=== PATIENT | male | born 1940 | race Caucasian/White ===

== ENCOUNTER 2019-04-02 10:24 | Inpatient (IN) ==
[2019-04-02] MEDS ORDERED: SODIUM CHLORIDE 0.9% 500 ML IV SCH (11:15)
[2019-04-02] MEDS ORDERED: VANCOMYCIN CONSULT ACTIVE PRN ×3 (11:20→15:16)
[2019-04-02] MEDS ORDERED: VANCOMYCIN HCL 2,500 MG in SODIUM CHLORIDE 0.9% 500 ML IV ONE ×2 (11:20→12:50)
[2019-04-02 11:40] LABS: Hematocrit (blood only) 35.2 % (42-52); Hemoglobin 11.8 g/dL (14.0-18.0); Immature Granulocytes # (auto) 0.03 K/uL (0.00-0.02); Immature Granulocytes % (auto) 0.4 %; Lymphocytes # (auto) 1.92 K/uL (1.2-3.4); Lymphocytes % (auto) 22.9 %; Mean Corpuscular Hgb Conc 33.5 g/dL (32-36); Mean Corpuscular Volume 89.6 fL (80-100); Monocytes # (auto) 1.36 K/uL (0.11-0.59); Monocytes % (auto) 16.2 %; Neutrophils # (auto) 5.09 K/uL (1.4-6.5); Neutrophils % (auto) 60.5 %; Platelet Count 260 K/uL (130-400); RDW Coefficient of Variation 13.4 % (11.5-14.5); RDW Standard Deviation 44.3 fL (36.4-46.3); Red Blood Count 3.93 M/uL (4.7-6.1)
[2019-04-02 11:50] LABS: Prothrombin Time 10.6 Seconds (9.0-12.0)
--- NOTE | 2019-04-02 11:50 | XRay Report ---
SINGLE VIEW CHEST CLINICAL HISTORY: Right hip infection. FINDINGS: 2 AP, portable, upright chest radiographs are obtained. No prior studies are available for comparison at the time of dictation. The examination is degraded by portable technique and apical favian dotic positioning. The heart is enlarged and there is atherosclerotic calcification of the thoracic aorta. The pulmonary vasculature is noncongested. There is bibasilar scarring/atelectasis. No airspac e consolidation or large pleural effusion is identified. No pneumothorax is seen. The skeletal struct ures are osteopenic. The bony thorax is grossly intact. Postoperative change is noted in the right hu meral head. IMPRESSION: Cardiomegaly with no acute cardiopulmonary abnormality. Electronically signed by: Teofilo Wooten M.D. 04/02/2019 11:49 AM
[2019-04-02 12:02] LABS: Albumin Level 3.2 gm/dl (3.4-5.0); BUN Creatinine Ratio 24.1 (10-20); Calcium 9.8 mg/dl (8.5-10.1); Creatinine Clr Calc Pharmacy 67.7 ml/min; Est GFR (Non-African American) 71.6; Potassium 4.7 mmol/L (3.5-5.1)
[2019-04-02 12:05] LABS: Albumin Globulin Ratio 0.7 (0.9-2); Bilirubin,Total 0.6 mg/dl (0.2-1); Globulin 4.5 gm/dl (2.5-4.0); Total Protein 7.7 gm/dl (6.4-8.2)
--- NOTE | 2019-04-02 12:56 | Emergency Department Note ---
Entered by Regla Martinez acting as a scribe for History of Present Illness General Chief complaint: Infection, Wound Stated complaint: WOUND CHECK FOR INFECTION, DR VALERA SENT Time Seen by Provider: 04/02/19 11:03 Source: patient and family Mode of arrival: ambulatory Limitations: no limitations History of Present Illness Provider complaint: infection Onset (ago): day(s) 5 Pain Consistency: + other (worsening) Quality: + other (suspected) Associated symptoms: + fever/chills The patient is an 78 year old male who presents to the ER with complaints of a suspected infection that began night. The patient reports that he had a right [place] done on February [address] [place] [facility] [place] He states that night he had some inflammation in the surgical area and notes it has worsened since. He also reports that he has had chills and he has had a persistent fever. His family at bedside states that the highest was 102.6 F on Tuesday. Per family, the patient was evaluated at [facility] in [place] and evaluated by Dr. Valera and Dr. Godinez where he had blood work done but did not receive any antibiotics. They explain that they presented [place] [facility] [place] and evaluated by Ari Blackmon PA-C and referred here secondary to Dr. Mccabe being out of the office. Home Medications Home Medications Medication Instructions Recorded Confirmed Type acetaminophen [Tylenol Extra 500 mg PO Q6H PRN 04/02/19 04/02/19 History Strength] aspirin [Aspirin Low Dose] 81 mg PO DAILY 04/02/19 04/02/19 History brimonidine [Alphagan P] 1 drp OPB TID 04/02/19 04/02/19 History cholecalciferol (vitamin D3) 2,000 unit PO DAILY 04/02/19 04/02/19 History [Vitamin D3] citalopram 20 mg PO DAILY 04/02/19 04/02/19 History cyanocobalamin (vitamin B-12) 1,000 mcg PO DAILY 04/02/19 04/02/19 History [Vitamin B-12] ibuprofen 600 mg PO BID 04/02/19 04/02/19 History multivitamin 1 tab PO DAILY 04/02/19 04/02/19 History pramipexole 0.25 mg PO HS 04/02/19 04/02/19 History propranolol 10 mg PO BID 04/02/19 04/02/19 History risperidone 0.25 mg PO HS 04/02/19 04/02/19 History Allergies Allergy/AdvReac Type Severity Reaction Status Date / Time atorvastatin [From Lipitor] Allergy Nausea Unverified 04/02/19 11:52 niacin Allergy Rash Unverified 04/02/19 11:52 [From Niaspan Extended-Release] Past Med/Surg History Surgical History History of right hip replacement (~02/19/19) By Dr. Tee at [facility] Social History Preferred Language: Kiswahili marital status: Current Living Situation: Family Feels Safe at Home: Yes Smoking Status: Former smoker Review of Systems See HPI for pertinent positives & negatives. and A total of 10 systems reviewed and were otherwise negative Physical Exam Vital Signs Vital Signs - 24 hr 04/02/19 10:45 04/02/19 12:26 04/02/19 14:00 Temperature 36.6 C Temperature Source Oral Sepsis Recent Fever Within 48 Hours No Sepsis New/Unexplained Change in Mental Status No Sepsis Action Taken by Nursing No Action Required Pulse Rate 58 L Pulse Rate [Apical] 74 60 Pulse Rhythm Regular Pulse Strength Normal Respiratory Rate 20 16 16 Respiratory Effort / Characteristics Non-Labored Spontaneous Respiratory Depth Normal Respiratory Pattern Regular Blood Pressure 149/73 H Blood Pressure [Left Arm] 163/92 H 150/82 H Blood Pressure Mean 98 Blood Pressure Mean [Left Arm] 115 104 Pulse Oximetry 98 97 98 Oxygen Delivery Method Room Air Room Air Room Air CONSTITUTIONAL/VITAL SIGNS: Reviewed / noted above. GENERAL: Non-toxic in appearance. INTEGUMENTARY: Warm, dry, and [place]. HEAD: Normocephalic. EYES: without scleral icterus or trauma. ENT/OROPHARYNX: clear and moist. LYMPHADENOPATHY/NECK: Is supple without lymphadenopathy or meningismus. RESPIRATORY: Lungs clear and equal. CARDIOVASCULAR: Regular rate and rhythm. GI/ABDOMEN: Soft and nontender. No organomegaly or pulsatile mass. No rebound or guarding. Normal bowel sounds. EXTREMITIES: Warm and well perfused. Swelling and redness to the right lateral hip overlying the incision from recent hip surgery. BACK: No CVA tenderness. NEUROLOGICAL: Intact without focal deficits. PSYCHIATRIC: normal affect. MUSCULOSKELETAL: Normally developed with good muscle tone. Course 1104: Past medical records reviewed. The patient was evaluated in room B3B. A complete history and physical examination was performed. 1127: I discussed the patients case with BENEDICTO Pierre. He will come evaluate the patient. 1356: Ortho evaluated the patient and accepted the patient into his care. They will continue to evaluate the patient for further management. Administered Medications Vancomycin HCl 2,500 mg/ (Sodium Chloride) 550 mls @ 200 mls/hr IV NOW ONE; Protocol Stop: 04/02/19 15:34 Last Admin: 04/02/19 12:58 Dose: 200 mls/hr Documented by: [id number] Discontinued Medications Sodium Chloride (Nss) 500 mls @ 999 mls/hr IV .Q31M SAÚL Stop: 04/02/19 11:45 Last Infusion: 04/02/19 12:59 Dose: 0 mls/hr Documented by: [id number] Admin: 04/02/19 12:23 Dose: 999 mls/hr Documented by: [id number] Medical Decision Making Differential Diagnosis Differential diagnosis: cellulitis, abscess, MRSA, infection, DVT, necrotizing fasciitis, dermatitis, drug eruption, as well as others were entertained. Medical Records Attestation: I reviewed the patient's medical records. Home Medications Current Medication List: was personally reviewed by me Laboratory Data Attestation: I reviewed the patient's lab results. Result diagrams: 04/02/19 11:30 04/02/19 11:30 Lab Results 04/02/19 04/02/19 04/02/19 Range/Units 11:30 11:30 11:30 WBC 8.40 (4.8-10.8) K/uL RBC 3.93 L (4.7-6.1) M/uL Hgb 11.8 L (14.0-18.0) g/dL Hct 35.2 L (42-52) % MCV 89.6 (80-100) fL MCH 30.0 (25-34) pg MCHC 33.5 (32-36) g/dL RDW Std Deviation 44.3 (36.4-46.3) fL RDW Coeff of Yung 13.4 (11.5-14.5) % Plt Count 260 (130-400) K/uL MPV 9.0 (7.4-10.4) fL Immature Gran % (Auto) 0.4 % Neut % (Auto) 60.5 % Lymph % (Auto) 22.9 % [place] % (Auto) 16.2 % Eos % (Auto) 0.0 % Baso % (Auto) 0.0 % Immature Gran # (Auto) 0.03 H (0.00-0.02) K/uL Neut # (Auto) 5.09 (1.4-6.5) K/uL Lymph # (Auto) 1.92 (1.2-3.4) K/uL [place] # (Auto) 1.36 H (0.11-0.59) K/uL Eos # (Auto) 0.00 (0-0.5) K/uL Baso # (Auto) 0.00 (0-0.2) K/uL ESR > 90 H (0-14) mm/hr PT 10.6 (9.0-12.0) Seconds INR 1.0 (0.9-1.1) Sodium (136-145) mmol/L Potassium (3.5-5.1) mmol/L Chloride (98-107) mmol/L Carbon Dioxide (21-32) mmol/L Anion Gap (3-11) BUN (7-18) mg/dl Creatinine (0.6-1.4) mg/dl Est Cr Clr Drug Dosing ml/min Est GFR ( Amer) Est GFR (Non-Af Amer) BUN/Creatinine Ratio (10-20) Glucose (70-99) mg/dl Calcium (8.5-10.1) mg/dl Total Bilirubin (0.2-1) mg/dl AST (15-37) U/L ALT (12-78) U/L Alkaline Phosphatase (45-117) U/L Total Protein (6.4-8.2) gm/dl Albumin (3.4-5.0) gm/dl Globulin (2.5-4.0) gm/dl Albumin/Globulin Ratio (0.9-2) 04/02/19 Range/Units 11:30 WBC (4.8-10.8) K/uL RBC (4.7-6.1) M/uL Hgb (14.0-18.0) g/dL Hct (42-52) % MCV (80-100) fL MCH (25-34) pg MCHC (32-36) g/dL RDW Std Deviation (36.4-46.3) fL RDW Coeff of Yung (11.5-14.5) % Plt Count (130-400) K/uL MPV (7.4-10.4) fL Immature Gran % (Auto) % Neut % (Auto) % Lymph % (Auto) % [place] % (Auto) % Eos % (Auto) % Baso % (Auto) % Immature Gran # (Auto) (0.00-0.02) K/uL Neut # (Auto) (1.4-6.5) K/uL Lymph # (Auto) (1.2-3.4) K/uL [place] # (Auto) (0.11-0.59) K/uL Eos # (Auto) (0-0.5) K/uL Baso # (Auto) (0-0.2) K/uL ESR (0-14) mm/hr PT (9.0-12.0) Seconds INR (0.9-1.1) Sodium 140 (136-145) mmol/L Potassium 4.7 (3.5-5.1) mmol/L Chloride 102 (98-107) mmol/L Carbon Dioxide 30 (21-32) mmol/L Anion Gap 8.0 (3-11) BUN 24 H (7-18) mg/dl Creatinine 0.99 (0.6-1.4) mg/dl Est Cr Clr Drug Dosing 67.7 ml/min Est GFR ( Amer) 83.0 Est GFR (Non-Af Amer) 71.6 BUN/Creatinine Ratio 24.1 H (10-20) Glucose 107 H (70-99) mg/dl Calcium 9.8 (8.5-10.1) mg/dl Total Bilirubin 0.6 (0.2-1) mg/dl AST 27 (15-37) U/L ALT 60 (12-78) U/L Alkaline Phosphatase 118 H (45-117) U/L Total Protein 7.7 (6.4-8.2) gm/dl Albumin 3.2 L (3.4-5.0) gm/dl Globulin 4.5 H (2.5-4.0) gm/dl Albumin/Globulin Ratio 0.7 L (0.9-2) Imaging Data Radiologist's Impression: Radiology results as stated below per my review and the radiologist's interpretation: SINGLE VIEW CHEST CLINICAL HISTORY: Right hip infection. FINDINGS: 2 AP, portable, upright chest radiographs are obtained. No prior boris dies are available for comparison at the time of dictation. The examination is degraded by portable technique and apical lordotic positioning. The heart is enlarged and there is atherosclerotic calcification of the thoracic aorta. The pulmonary vasculature is noncongested. There is bibasilar scarring/atelectasis. No airspace consolidation or large pleural effusion is identified. No pneumothorax is seen. The skeletal structures are osteopenic. The bony thorax is grossly intact. Postoperative change is noted in the right humeral head. IMPRESSION: Cardiomegaly with no acute cardiopulmonary abnormality. Electronically signed by: Teofilo Wooten M.D. 04/02/2019 11:49 AM Blood Pressure Blood Pressure Findings: Elevated blood pressure Blood Pressure Disposition: further management by hospitalist JOY Narrative This is an 78-year-old male who presents to the ED with a chief complaint of a right hip wound infection. The patient was seen on Tuesday at the emergency department and MIKHAIL Alvarado. At that time he was concerned about infection. He followed up with the physician assistant principal administrative professional for Dr. Baird, Ari Blackmon, who recommended the patient come to the hospital here at [facility] for a washout of his right hip. The patient reports subjective fevers and chills as well as had a fever of 102.6 on Tuesday with 100.8 yesterday. He is afebrile here today. The patient's exam reveals some swelling and redness around the right hip incision and under the incision. There is currently no discharge noted but the patient did report some drainage. The patient CBC is unremarkable. Sed rate is 90. Chest x-ray is negative for acute disease. I did speak with Jeronimo Brink about the patient. He was in surgery at the time but requested that antibiotics be held until the CBC was back. Vancomycin IV was provided after the CBC came back. They will see the patient in the emergency department. Impression & Plan Postoperative wound infection of right hip Discharge Plan Visit Data Chief Complaint: Infection, Wound Stated Complaint: WOUND CHECK FOR INFECTION, DR VALERA SENT ED Provider: Bernard Kelley Discharge Problem: Postoperative wound infection of right hip Patient Disposition: Being Evaluated by Surgeon Forms Stand Alone Forms: [facility] Prescriptions Prescriptions: No Action multivitamin Tablet 1 tab PO DAILY RF: 0 cyanocobalamin (vitamin B-12) [Vitamin B-12] 1,000 mcg Tablet 1,000 mcg PO DAILY RF: 0 risperidone 0.25 mg Tablet 0.25 mg PO HS RF: 0 aspirin [Aspirin Low Dose] 81 mg Tablet,Delayed Release (Dr/Ec) 81 mg PO DAILY RF: 0 acetaminophen [Tylenol Extra Strength] 500 mg Tablet 500 mg PO Q6H PRN (Reason: Pain) RF: 0 propranolol 10 mg Tablet 10 mg PO BID RF: 0 citalopram 20 mg Tablet 20 mg PO DAILY RF: 0 pramipexole 0.25 mg Tablet 0.25 mg PO HS RF: 0 ibuprofen 600 mg tablet 600 mg PO BID RF: 0 Alphagan P 0.1 % Drops 1 drp OPB TID RF: 0 cholecalciferol (vitamin D3) [Vitamin D3] 2,000 unit Capsule 2,000 unit PO DAILY RF: 0 Referrals Referrals: Fidelia Nicolas M.D. [Primary Care Provider] - The scribe's documentation has been prepared under my direction and personally reviewed by me in its entirety. I confirm that the note above accurately reflects all work, treatment, procedures, and medical decision making performed by me.
[2019-04-02] MEDS ORDERED: MAGNESIUM HYDROXIDE SUSP 30 ML UDC PO PRN (17:09)
--- NOTE | 2019-04-02 18:38 | XRay Report ---
XR chest 2V routine HISTORY: 78 years-old Male pre op preoperative exam. No acute chest complaints COMPARISON: Chest radiographs of same day at 11:35 AM TECHNIQUE: PA and lateral views of the chest FINDINGS: Cardiac silhouette is mildly enlarged, unchanged. Minimal subsegmental bibasilar atelectasis/scarring . No pneumothorax, pleural effusion, focal airspace consolidation or overt pulmonary edema. Degenerat cecilia changes of the shoulders and spine. Postoperative changes of the left shoulder. Surgical clips pr oject over the upper abdomen. IMPRESSION: No acute process. The above report was generated using voice recognition software. It may contain grammatical, syntax o r spelling errors. Electronically signed by: Al Taylor M.D. 04/02/2019 6:37 PM
--- NOTE | 2019-04-02 19:07 | Hospitalist Consultation ---
Date of Consultation April 02, 2019 Assessment & Plan (1) Postoperative wound infection of right hip: - S/P R NEIL on 02/19 - does report he was instructed to use hydrogen peroxide on incision site - maybe some skin breakdown contributing? - reporting fever/chills/general ill feelings/drainage/erythema at site - Started on Vancomycin therapy - likely a gram + organism would be the culprit - not immunocompromised/diabetic... - clinically appears well but pending operative cultures may need to broaden to cover gram negs - Reporting fevers/rigors - currently no documented fever and no leukocytosis on labs; however site is erythematous and reports drainage however currently is dry - Largely pain is controlled - will order Morphine PRN if necessary - Orthopedics primary service - appreciate surgical management Present on Admission?: Yes (2) Pre-operative clearance: - Reports that he follows with a behavior management specialist Dr Merritt?Bandcelina? but reports he does not carry a cardiac H/O to his knowledge but follows for surveillance - states after his 's heart issues he wanted to be evaluated - Denies H/O KS/CHF/PE/DVT; denies having a recent stress test - Is able to ambulate flights of stairs without SOB/CP; Continues to be very physically active but limitations are largely from orthopedic issues - CXR unremarkable; will obtain an EKG to assess rhythm and for any ischemic findings however no ACS symptoms present; states he had an irregular HR in the past and thinks he just had "extra beats" but did not know a name of the rhythm and states he behavior management specialist never mentions it - On the revised cardiac risk index he is a 3.9% risk and pending no acute ischemic findings on EKG would be optimized for surgical intervention (3) Carotid stenosis: - Reports routine monitoring for this - reports intolerance to Lipitor and was placed on a different medication (doesn't know which one) but states he had excessive muscle weakness so likely this was a different statin? - Takes ASA 81 mg daily - last dose was this AM on 04/02 Present on Admission?: Yes (4) Depression with anxiety: - Does endorse intermittent panic attacks - largely due to enclosed spaces - otherwise STABLE - Citalopram 20 mg daily and Risperidone 0.25 mg HS; will place low dose Ativan PRN if he would develop issues with anxiety Present on Admission?: Yes (5) Restless leg syndrome: - Pramipexole 0.25 mg HS Present on Admission?: Yes (6) Essential tremor: - STABLE - reports normally only a problem with fine motor skills like handwriting - Propranolol 10 mg BID Present on Admission?: Yes History of Present Illness Reason for Consultation: Pre-operative Clearance Attending Physician: Win Monahan, DO History of Present Illness Mr. Rios is an 78 y/o male with PMHx of Carotid Stenosis, Vitamin D Deficiency, Depression/Anxiety, Restless Leg Syndrome, and Essential Tremor who presents to the ED for worsening erythema of R hip incision. Pt underwent R NEIL on 02/19 and states he was doing well post-operatively. He was succeeding with PT and reported good progression. He states he has been judicious with monitoring his incision site. He states he was instructed to use hydrogen peroxide to the surgical incision which he has been following. On , he noticed increased erythema and drainage from the incision site. He also had associated fever/chills with the highest temperature of 102.6 on Tuesday. He reports his pain is largely controlled but does not some groin pain and intermittent radiation down the lateral thigh to the knee. States this was similar pain he experienced prior to surgical intervention. States he is having a slightly more difficult time ambulating since the erythema started. Allergies Allergy/AdvReac Type Severity Reaction Status Date / Time atorvastatin [From Lipitor] Allergy Nausea Unverified 04/02/19 11:52 niacin Allergy Rash Unverified 04/02/19 11:52 [From Niaspan Extended-Release] Home Medications Home Medications Medication Instructions Recorded Confirmed Type acetaminophen [Tylenol Extra 500 mg PO Q6H PRN 04/02/19 04/02/19 History Strength] aspirin [Aspirin Low Dose] 81 mg PO DAILY 04/02/19 04/02/19 History brimonidine [Alphagan P] 1 drp OPB TID 04/02/19 04/02/19 History cholecalciferol (vitamin D3) 2,000 unit PO DAILY 04/02/19 04/02/19 History [Vitamin D3] citalopram 20 mg PO DAILY 04/02/19 04/02/19 History cyanocobalamin (vitamin B-12) 1,000 mcg PO DAILY 04/02/19 04/02/19 History [Vitamin B-12] ibuprofen 600 mg PO BID 04/02/19 04/02/19 History multivitamin 1 tab PO DAILY 04/02/19 04/02/19 History pramipexole 0.25 mg PO HS 04/02/19 04/02/19 History propranolol 10 mg PO BID 04/02/19 04/02/19 History risperidone 0.25 mg PO HS 04/02/19 04/02/19 History Patient History Medical History Anxiety Carotid arterial disease Depression Essential tremor Guillain Reid syndrome at age 14 High cholesterol JOSH (obstructive sleep apnea) has CPAP, does not use RLS (restless legs syndrome) [place] teeth extracted Surgical History History of right hip replacement (~02/19/19) By Dr. Tee at [facility] H/O prostate biopsy had "growth" removed S/P cholecystectomy Status post rotator cuff repair L x 2 R x 1 Family History Other Family history non-contributory Social History Preferred Language: Portuguese Communication Ability: Effective Loan Examiner Required: No Beliefs That Will Affect Care: Jainism Jainism Beliefs: Baptism marital status: Current Living Situation: Spouse Other Information That Helps Us Care for You: No Feels Safe at Home: Yes Safety Concerns: Feels Safe At This Time Smoking Status: Former smoker Do You Dip or Chew Tobacco: No Smoking End Date: quit in his late 40's Second Hand Exposure: No Hx Alcohol Use: No Hx Substance Use: No Review of Systems Constitutional: + fever and + chills; no fatigue, no weakness and no anorexia Eyes: no worsening vision Ear, Nose, Mouth, Throat: no dry mouth, no sore throat and no dysphagia Respiratory: no cough and no dyspnea Cardiovascular: no chest pain, no palpitations, no lightheadedness, no edema and no calf pain Gastrointestinal: no abdominal pain, no nausea, no vomiting, no constipation and no diarrhea/loose stools Genitourinary: no dysuria Musculoskeletal: + joint pain (R hip with some R groin and radiation to R knee) Integumentary: + erythema (R hip incision) Neurologic: no tingling and no numbness Physical Exam Constitutional: WD/WN, vitals as above Eyes: + anicteric sclerae ENMT: Ears: no hearing impairment Neck: trachea midline Respiratory: normal respiratory effort, lungs clear to auscultation Cardiovascular: RRR, no murmur, no edema Gastrointestinal (Abdomen): Inspection/Auscultation: normal bowel sounds Percussion/Palpation: abdomen soft; abdomen nontender Musculoskeletal: Head/Neck/Chest: normocephalic, head atraumatic and neck supple Hip: + skin erythema (well-approximated incision with erythema at distal element of incision) Skin: no rashes, warm and dry (other then mentioned in MS section) Neurologic: moves all extremities Psychiatric: A+Ox3, euthymic affect Results & Data Vital Signs (Past 12 Hours) Vital Signs Temp Pulse Pulse Pulse Resp BP BP 04/02/19 16:50 37.4 C 76 16 171/89 H 04/02/19 14:00 60 16 150/82 H 04/02/19 12:26 74 16 163/92 H 04/02/19 10:45 36.6 C 58 L 20 149/73 H Pulse Ox 04/02/19 16:50 95 04/02/19 14:00 98 04/02/19 12:26 97 04/02/19 10:45 98
[2019-04-02] MEDS ORDERED: LORazepam 0.5 MG TAB PO PRN (19:11)
--- NOTE | 2019-04-02 20:45 | Pharmacy Report ---
Pharmacy Abx Dose Short Note - Date of Service April 02, 2019 - Assessment & Plan Assessment: 78 yo Male receiving VANC-IV for treatment of SSTI. Cultures pending. * Day # 1 of antimicrobial therapy. Plan: Vanc-IV: * Estimated pharmacokinetics: Vd~0.7 L/kg, Ke~0.0608 hr-1, T 1/2~11 hrs * LOADING DOSE: VANC 2500mg (~25mg/kg) IV x 1, then * MAINTENANCE DOSE: VANC 1500mg (~15mg/kg) IV q 12 hours. * Goal trough level: 15 to 20 mcg/mL * VANC Trough level @ Css ordered prior to 04/03/19 2200 dose Pharmacy will continue to follow and will adjust dose/frequency as necessary. Thank you.
--- NOTE | 2019-04-02 20:47 | History & Physical Report ---
Date of Service April 02, 2019 Assessment & Plan (1) Surgical site infection: Acute surgical site infection of the right hip, superficial versus deep. No systemic symptoms at this time. Patient did receive IV antibiotics in the emergency department, will continue IV antibiotics at this time. Medical hospitalist consulted for preoperative clearance. I have indicated the patient for superficial versus deep irrigation debridement of the right hip, possible head and liner exchange. The risks benefits and complications the procedure were expanded the patient in detail including the alternatives which include however not limited to infections, blood clots, acute blood loss, injury to n erves, bone, vessels, soft tissue, chronic pain, arthrofibrosis, hip dislocation, leg length discrepancy, recurrent infection, need for additional surgery, loss of limb and loss of life. Patient wished to proceed with surgical intervention at this time and informed consent was obtained. IV vancomycin Weight-bear as tolerated right lower extremity Preoperative clearance X-ray right hip History of Present Illness Chief Complaint: Right hip surgical site infection Primary Care Provider: Fidelia Nicolas The patient is an 78-year-old male with significant past medical history for anxiety, depression, CAD, HLD with recent right total hip replacement performed on February 19, [address] Tee. Uneventful postoperative. With the exception of 2 days prior to today's examination, patient reports increased pain and swelling over lateral right hip. Admits to intermittent drainage as well. Seen in the outpatient setting by Dr. patrick and subsequently sent to [facility] emergency department for further inpatient treatment due to the patient's surgeon being on vacation. The patient currently denies fevers and chills . Denies trauma. The patient received IV vancomycin in the emergency department. Allergies Allergy/AdvReac Type Severity Reaction Status Date / Time atorvastatin [From Lipitor] Allergy Nausea Unverified 04/02/19 11:52 niacin Allergy Rash Unverified 04/02/19 11:52 [From Niaspan Extended-Release] Home Medications Home Medications Medication Instructions Recorded Confirmed Type acetaminophen [Tylenol Extra 500 mg PO Q6H PRN 04/02/19 04/02/19 History Strength] aspirin [Aspirin Low Dose] 81 mg PO DAILY 04/02/19 04/02/19 History brimonidine [Alphagan P] 1 drp OPB TID 04/02/19 04/02/19 History cholecalciferol (vitamin D3) 2,000 unit PO DAILY 04/02/19 04/02/19 History [Vitamin D3] citalopram 20 mg PO DAILY 04/02/19 04/02/19 History cyanocobalamin (vitamin B-12) 1,000 mcg PO DAILY 04/02/19 04/02/19 History [Vitamin B-12] ibuprofen 600 mg PO BID 04/02/19 04/02/19 History multivitamin 1 tab PO DAILY 04/02/19 04/02/19 History pramipexole 0.25 mg PO HS 04/02/19 04/02/19 History propranolol 10 mg PO BID 04/02/19 04/02/19 History risperidone 0.25 mg PO HS 04/02/19 04/02/19 History Past Med/Surg History Medical History Anxiety Carotid arterial disease Depression Essential tremor Guillain Reid syndrome at age 14; has resolved; no residual deficits after 1 year High cholesterol JOSH (obstructive sleep apnea) has CPAP, does not use RLS (restless legs syndrome) [place] teeth extracted Surgical History History of right hip replacement (~02/19/19) By Dr. Tee at [facility] H/O prostate biopsy had "growth" removed S/P cholecystectomy Status post rotator cuff repair L x 2 R x 1 Family History Other Family history non-contributory Social History Preferred Language: Japanese Communication Ability: Effective Electroformer Required: No Beliefs That Will Affect Care: Pentecostalism Pentecostalism Beliefs: Islam marital status: Current Living Situation: Spouse Other Information That Helps Us Care for You: No Feels Safe at Home: Yes Safety Concerns: Feels Safe At This Time Smoking Status: Former smoker Do You Dip or Chew Tobacco: No Smoking End Date: quit in his late 40's Second Hand Exposure: No Hx Alcohol Use: No Hx Substance Use: No Review of Systems Review of Systems: All systems reviewed & are unremarkable except as noted in HPI & below Constitutional: as per Subjective / HPI Physical Exam Physical Exam: RLE NVSI +EHL/FHL/TA/GS SILT grossly, +2 DP pulse, compartments soft NT, Painless range of motion of the hip. Increased erythema and edema distal one third incision measuring 8 cm x 7 cm, + induration, no active drainage or wound dehiscence, scant serosanguineous drainage on dressing. Constitutional: WD/WN, vitals as above Eyes: PERRL, conjunctivae normal, anicteric sclerae ENMT: external ear and nose normal, oropharynx normal Neck: trachea midline, no thyromegaly Respiratory: normal respiratory effort, lungs clear to auscultation Cardiovascular: RRR, no murmur, no edema Gastrointestinal (Abdomen): normal bowel sounds, soft, nontender, no hepatosplenomegaly Musculoskeletal: no cyanosis or clubbing, extremities motor strength 5/5 Skin: + rash, + induration, + scar and + incision Neurologic: patellar DTR's 2+ bilat, sensation intact Psychiatric: A+Ox3, euthymic affect Lymphatic: no cervical or axillary lymphadenopathy Results & Data Vital Signs (Past 12 Hours) Vital Signs Temp Pulse Pulse Pulse Resp BP BP 04/02/19 16:50 37.4 C 76 16 171/89 H 04/02/19 14:00 60 16 150/82 H 04/02/19 12:26 74 16 163/92 H 04/02/19 10:45 36.6 C 58 L 20 149/73 H Pulse Ox 04/02/19 16:50 95 04/02/19 14:00 98 04/02/19 12:26 97 04/02/19 10:45 98
[2019-04-02] MEDS: PROPRANOLOL HCL 10 MG TAB PO SCH (20:55)
[2019-04-02] MEDS: risperiDONE 0.5 MG TABLET PO SCH (20:55)
[2019-04-02] MEDS: PRAMIPEXOLE DIHYDROCHLO 0.25 MG TAB PO SCH (20:56)
[2019-04-02] MEDS ORDERED: BRIMONIDINE OPB SCH (21:00)
[2019-04-02] MEDS: VANCOMYCIN HCL 1,500 MG in SODIUM CHLORIDE 0.9% 500 ML IV SCH (21:02)
--- NOTE | 2019-04-02 22:20 | XRay Report ---
XR hip 1V RT w pelvis CLINICAL HISTORY: right hip pain, surgical site infection COMPARISON STUDY: None. FINDINGS: There is a right total hip arthroplasty. Hardware appears intact. No abnormal periprostheti c lucency. No fracture or dislocation within the pelvis or hips. 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 Soft tissues are unremarkable. IMPRESSION: 1. Right total hip arthroplasty. No abnormal periprosthetic lucency. 2. No fracture or dislocation within the pelvis or hips. Electronically signed by: Charles García M.D. 04/02/2019 10:18 PM
[2019-04-03] MEDS: SODIUM CHLORIDE 0.9% 1000ML 1,000 ML IV SCH ×4 (00:06→23:41)
[2019-04-03 07:37] LABS: Creatinine Clr Calc Pharmacy 88.2 ml/min; Est GFR (African American) 99.9; Est GFR (Non-African American) 86.2
[2019-04-03] MEDS: CITALOPRAM 20 MG TAB PO SCH (07:48)
[2019-04-03] MEDS: PROPRANOLOL HCL 10 MG TAB PO SCH ×2 (07:48→20:40)
[2019-04-03] MEDS: VANCOMYCIN HCL 1,500 MG in SODIUM CHLORIDE 0.9% 500 ML IV SCH ×2 (11:06→21:27)
[2019-04-03] MEDS: MoRPHine SULFATE 2 MG/ML CARP IV PRN ×2 (13:24)
[2019-04-03] MEDS: BRIMONIDINE TARTRATE-P 0.15% 5 ML BTL OP SCH ×2 (13:24→20:43)
--- NOTE | 2019-04-03 14:21 | Anesthesiology Consultation ---
Date of Service April 03, 2019 Assessment & Plan Chart Review Chart Review: Acceptable Risk for Surgery and Patient NOT seen in Pre Admission Testing Consults Requested none ASA ASA3 Proposed Anesthesia Anesthesia Type: General Risk / Benefits Reviewed With: PT / POA / Parent / Guardian, Accepts Plan and Informed Consent Obtained History Surgery Operation Date: 04/03/19 07:00 Proposed Procedures p Incision and Drainage Hip - Win Monahan DO s Total Hip Revision - Win Monahan DO Height/Weight Height: 1.75 m Weight: 95 kg Allergies Allergy/AdvReac Type Severity Reaction Status Date / Time atorvastatin [From Lipitor] Allergy Nausea Unverified 04/02/19 11:52 niacin Allergy Rash Unverified 04/02/19 11:52 [From Niaspan Extended-Release] Medications Home Medications Medication Instructions Recorded Confirmed Last Taken acetaminophen [Tylenol Extra 500 mg PO Q6H PRN 04/02/19 04/02/19 04/02/19 Strength] aspirin [Aspirin Low Dose] 81 mg PO DAILY 04/02/19 04/02/19 04/02/19 brimonidine [Alphagan P] 1 drp OPB TID 04/02/19 04/02/19 04/02/19 cholecalciferol (vitamin D3) 2,000 unit PO DAILY 04/02/19 04/02/19 04/02/19 [Vitamin D3] citalopram 20 mg PO DAILY 04/02/19 04/02/19 04/02/19 cyanocobalamin (vitamin B-12) 1,000 mcg PO DAILY 04/02/19 04/02/19 04/02/19 [Vitamin B-12] ibuprofen 600 mg PO BID 04/02/19 04/02/19 04/02/19 multivitamin 1 tab PO DAILY 04/02/19 04/02/19 04/02/19 pramipexole 0.25 mg PO HS 04/02/19 04/02/19 04/01/19 propranolol 10 mg PO BID 04/02/19 04/02/19 04/02/19 risperidone 0.25 mg PO HS 04/02/19 04/02/19 04/01/19 Active Medications Generic Name Dose Route Start Last Admin Trade Name Freq PRN Reason Stop Dose Admin Brimonidine Tartrate 1 drops 04/03/19 14:00 04/03/19 13:24 Alphagan-P 0.15% OP 05/03/19 13:59 1 drops TID SAÚL Administration Citalopram Hydrobromide 20 mg 04/03/19 09:00 04/03/19 07:48 Celexa PO 05/03/19 08:59 20 mg DAILY SAÚL Administration Vancomycin HCl 1,500 mg/ 530 mls @ 200 mls/hr 04/02/19 22:00 04/03/19 13:50 Sodium Chloride IV 04/12/19 21:59 Infused Q12H SAÚL Infusion Protocol Sodium Chloride 1,000 mls @ 85 mls/hr 04/02/19 23:55 04/03/19 11:06 Nss 1000ml IV 05/02/19 23:54 85 mls/hr .[id number] SAÚL Administration Morphine Sulfate 2 mg 04/02/19 19:11 04/03/19 13:24 Morphine Sulfate IV 04/16/19 19:10 2 mg Q4H PRN Administration Pain Pramipexole Dihydrochloride 0.25 mg 04/02/19 21:00 04/02/19 20:56 Mirapex PO 05/02/19 20:59 0.25 mg HS SAÚL Administration Propranolol HCl 10 mg 04/02/19 21:00 04/03/19 07:48 Inderal PO 05/02/19 20:59 10 mg BID SAÚL Administration Risperidone 0.25 mg 04/02/19 21:00 04/02/19 20:55 Risperdal PO 05/02/19 20:59 0.25 mg HS SAÚL Administration NPO Date Last Intake of Fluids: 04/03/19 Time Last Intake of Fluids: 07:45 Last Intake of Fluids Comment: sip of water with meds Date Last Intake of Solids: 04/02/19 Time Last Intake of Solids: 18:00 Past Medical History Medical History Anxiety Carotid arterial disease Depression Essential tremor Guillain Reid syndrome at age 14; has resolved; no residual deficits after 1 year High cholesterol JOSH (obstructive sleep apnea) has CPAP, does not use RLS (restless legs syndrome) [place] teeth extracted Exercise / Class Metabolic Activity II 4-5 Yardwork/Stairs/Walk up hill Past Family History Family History Other Family history non-contributory Past Surgical History Surgical History History of right hip replacement (~02/19/19) By Dr. Tee at [facility] H/O prostate biopsy had "growth" removed S/P cholecystectomy Status post rotator cuff repair L x 2 R x 1 Past Anesthesia History No Hx of Anesthesia Complications and No Family Hx of Anesthesia Complications History of PONV No Hx of PONV and No Hx of Motion Sickness Social History Smoking Status: Former smoker Do You Dip or Chew Tobacco: No Smoking End Date: quit in his late 40's Hx Alcohol Use: No Hx Substance Use: No Review of Systems Respiratory: no dyspnea Cardiovascular: no dyspnea on exertion and no orthopnea Gastrointestinal: no heartburn, no nausea and no vomiting Hematologic / Lymphatic: no easy bleeding and no easy bruising Physical Exam Vital Signs Last Vital Signs Temp 36.6 C 04/03/19 07:13 Pulse 82 04/03/19 07:13 Resp 19 04/03/19 07:13 BP 151/81 H 04/03/19 07:13 Pulse Ox 94 04/03/19 07:13 ENMT Mouth: no TMJ abnormality and no TMJ clicking Thyromental Distance: > or= 3.5 Finger Breadths Mallampati Class: III Neck normal visual inspection; neck extension not limited Respiratory Auscultation: lungs clear to auscultation bilaterally Cardiovascular Rate/Rhythm: regular rate and regular rhythm Musculoskeletal Spine: normal cervical ROM and no pain with cervical ROM Psychiatric Orientation: alert and oriented x 3 Testing Laboratory Results 04/02/19 11:30 04/03/19 06:54 04/02/19 17:28 Blood Type AB Positive Antibody Screen NEGATIVE 04/02/19 11:23 Aerobic Blood Culture - Preliminary Blood No growth in Aerobic bottle after 24 hours. Anaerobic Blood Culture - Preliminary No growth in Anaerobic bottle after 24 hours. 04/02/19 11:30 Aerobic Blood Culture - Preliminary Blood No growth in Aerobic bottle after 24 hours. Anaerobic Blood Culture - Preliminary No growth in Anaerobic bottle after 24 hours. Laboratory Tests 04/02/19 04/02/19 04/03/19 11:30 11:30 06:54 PT 10.6 INR 1.0 Sodium 140 Potassium 4.7 Chloride 102 Carbon Dioxide 30 BUN 24 H Creatinine 0.76 Glucose 107 H Electrocardiogram Date: 04/02/19 Findings: + NSR @ (79 bpm) Possible Left Atrial Enlargemnt Chest X-Ray Date: 04/02/19 Findings: + NAD
[2019-04-03] MEDS ORDERED: ePHEDrine sulfate 50 MG/ML AMP IV PRN (15:01)
[2019-04-03] MEDS ORDERED: ATROPINE SULFATE 0.1 MG/ML 10ML SYR IV PRN (15:01)
[2019-04-03] MEDS ORDERED: PHENYLEPHRINE 100MCG/ML 5ML SYR IV PRN (15:01)
[2019-04-03] MEDS ORDERED: HYDROmorphone INJ 1 MG/ML SYRINGE IV PRN (15:01)
[2019-04-03] MEDS ORDERED: ONDANSETRON INJ 2 MG/ML 2 ML VIAL IV PRN ×2 (15:01→17:55)
[2019-04-03] MEDS ORDERED: ROCURONIUM BROMIDE 10 MG/ML 5 ML VIAL ONE (15:04)
[2019-04-03] MEDS ORDERED: ONDANSETRON INJ 2 MG/ML 2 ML VIAL ONE (15:04)
[2019-04-03] MEDS ORDERED: PROPOFOL IV EMULSION 10 MG/ML 20 ML VIAL IV ONE (15:04)
[2019-04-03] MEDS ORDERED: NEOSTIGMINE METHYLSULFATE 5 MG/5 ML SYR ONE (15:04)
[2019-04-03] MEDS ORDERED: ePHEDrine sulfate 50 MG/ML SYR ONE (15:04)
[2019-04-03] MEDS ORDERED: fentaNYL citrate 100 MCG/2 ML VIAL ONE (15:04)
[2019-04-03] MEDS ORDERED: BACITRACIN INJ 50,000 UNIT VIAL ONE (15:04)
[2019-04-03] MEDS ORDERED: GLYCOPYRROLATE 0.2 MG/ML VIAL ONE (15:04)
[2019-04-03] MEDS ORDERED: LIDOCAINE HCL 2% 2 ML VIAL/AMP(20MG/ML) INFIL ONE (15:04)
--- NOTE | 2019-04-03 15:24 | Orthopedic Progress Note ---
Date of Service April 03, 2019 Assessment & Plan (1) Surgical site infection: Acute surgical site infection of the right hip, superficial versus deep. No systemic symptoms at this time. I have indicated the patient for superficial versus deep irrigation debridement of the right hip, possible head and liner exchange. The risks benefits and complications the procedure were expanded the patient in detail including the alternatives which include however not limited to infections, blood clots, acute blood loss, injury to nerves, bone, vessels, soft tissue, chronic pain, arthrofibrosis, hip dislocation, leg length discrepancy, recurrent infection, need for additional surgery, loss of limb and loss of life. Patient wished to proceed with surgical intervention at this time and informed consent was obtained. IV vancomycin Weight-bear as tolerated right lower extremity Preoperative clearance obtained X-ray right hip dose as well aligned well fixed orthopedic prosthesis. Subjective Patient seen in preoperative holding accompanied by family. Comfortable, denies pain and fevers at this time. Review of Systems Review of Systems: All systems reviewed & are unremarkable except as noted in HPI & below Constitutional: as per Subjective / HPI Physical Exam Physical Exam: RLE NVSI +EHL/FHL/TA/GS SILT grossly, +2 DP pulse, compartments soft NT, scant drainage distal one third incision, 8 x 8 cm area of induration and erythema. Constitutional: WD/WN, vitals as above Results & Data Vital Signs (Past 12 Hours) Vital Signs Temp Pulse Resp BP Pulse Ox 04/03/19 14:45 36.7 C 78 20 157/80 H 95 04/03/19 07:13 36.6 C 82 19 151/81 H 94
--- NOTE | 2019-04-03 15:24 | History & Physical Bridge Note ---
Date of Service April 03, 2019 History & Physical Bridge Note I have examined the patient, reviewed the History & Physical and in the interval since the performance of the History & Physical I have noted the following changes of clinical significance: no changes noted
--- NOTE | 2019-04-03 15:37 | Hospitalist Progress Note ---
Date of Service April 03, 2019 Assessment & Plan (1) Postoperative wound infection of right hip: - S/P R NEIL on 02/19 - does report he was instructed to use hydrogen peroxide on incision site - maybe some skin compromise contributing? - reporting fever/chills/general ill feelings/drainage/erythema at site prior to presentation - Started on Vancomycin therapy - likely a gram + organism would be the culprit - not immunocompromised/diabetic... - clinically appears well but pending operative cultures may need to broaden to cover gram negs - Reporting fevers/rigors - currently no documented fever and no leukocytosis on labs; however site is erythematous and drainage is present - Largely pain is controlled - will order Morphine PRN if necessary - Orthopedics primary service - appreciate surgical management (2) Pre-operative clearance: - Reports that he follows with a various exceptionalities teacher Dr Merritt?[employer]? but reports he does not carry a cardiac H/O to his knowledge but follows for surveillance - states after his 's heart issues he wanted to be evaluated - Denies H/O [place]/CHF/PE/DVT; denies having a recent stress test - Is able to ambulate flights of stairs without SOB/CP; Continues to be very physically active but limitations are largely from orthopedic issues - CXR unremarkable; EKG without any ischemic findings and no ACS symptoms present; states he had an irregular HR in the past and thinks he just had "extra beats" but did not know a name of the rhythm and states he various exceptionalities teacher never mentions it - On the revised cardiac risk index he is a 3.9% risk and pending no acute ischemic findings on EKG would be optimized for surgical intervention (3) Carotid stenosis: - Reports routine monitoring for this - reports intolerance to Lipitor and was placed on a different medication (doesn't know which one) but states he had excessive muscle weakness so likely this was a different statin? - Takes ASA 81 mg daily - last dose was AM on 04/02 (4) Depression with anxiety: - Does endorse intermittent panic attacks - largely due to enclosed spaces - otherwise STABLE - Citalopram 20 mg daily and Risperidone 0.25 mg HS; will place low dose Ativan PRN if he would develop issues with anxiety (5) Restless leg syndrome: - Pramipexole 0.25 mg HS (6) Essential tremor: - STABLE - reports normally only a problem with fine motor skills like handwriting - Propranolol 10 mg BID Subjective Reports feeling well today. Awaiting surgical intervention. No fever/chills. Reports discomfort is manageable in the hip. Visiting with family at bedside. No other complaints Review of Systems Constitutional: no fever, no chills, no fatigue, no weakness and no anorexia Respiratory: no cough and no dyspnea Cardiovascular: no chest pain, no palpitations and no edema Gastrointestinal: no abdominal pain, no nausea, no vomiting, no constipation and no diarrhea/loose stools Genitourinary: no dysuria Musculoskeletal: + joint pain (R hip with some R groin and radiation to R knee) Integumentary: + erythema (R hip incision) Neurologic: no tingling and no numbness Physical Exam Constitutional: WD/WN, vitals as above Eyes: + anicteric sclerae ENMT: Ears: no hearing impairment Neck: trachea midline Respiratory: normal respiratory effort, lungs clear to auscultation Cardiovascular: RRR, no murmur, no edema Gastrointestinal (Abdomen): Inspection/Auscultation: normal bowel sounds Percussion/Palpation: abdomen soft; abdomen nontender Musculoskeletal: Head/Neck/Chest: normocephalic, head atraumatic and neck supple presence of dressing at R hip incision which I did not remove, evidence of discharge on dressing which has been marked without expansion Skin: no rashes, warm and dry (other then mentioned in MS section) Neurologic: moves all extremities Psychiatric: A+Ox3, euthymic affect Results & Data Vital Signs (Past 12 Hours) Vital Signs Temp Pulse Resp BP Pulse Ox 04/03/19 14:45 36.7 C 78 20 157/80 H 95 04/03/19 07:13 36.6 C 82 19 151/81 H 94
--- NOTE | 2019-04-03 16:47 | Post Operative Brief Note ---
Immediate Post Op Note v1 Date of Surgery April 03, 2019 Pre & Post Diagnosis Operation Date: 04/03/19 07:00 Pre-Op Diagnosis: Right Hip Surgical Site Infection Post-Op Diagnosis: Right Hip Surgical Site Infection Procedure Operation Date: 04/03/19 07:00 Actual Procedures p Superficial Incision and Drainage Right Hip, Incision of Scar(Right) - Win Monahan DO Surgeon Win Monahan DO Store Receiving Clerk none Estimated Blood Loss 50 Findings Consistent with Post-Op Diagnosis Fluids 850 cc LR Specimens superficial culture x 2, superficial tissue x 1 Drains Hemovac Drain and Other (Prevena) Anesthesia Type General Complications none Disposition Disposition: Recovery Room Overlapping Procedure I was present for: the critical portions of procedure. I was immediately available: during the entire case. Back up surgeon: was not required during procedure.
[2019-04-03] MEDS: fentaNYL citrate 100 MCG/2 ML VIAL IV PRN ×3 (17:05→17:20)
--- NOTE | 2019-04-03 17:09 | Operative Report ---
Post Operative Report Pre & Post Diagnosis Operation Date: 04/03/19 07:00 Pre-Op Diagnosis: Right Hip Surgical Site Infection Post-Op Diagnosis: Right Hip Surgical Site Infection Procedure Operation Date: 04/03/19 07:00 Actual Procedures p Superficial Incision and Drainage Right Hip, Incision of Scar(Right) - Win Monahan DO Surgeon Win Monahan, Inspector Machined Parts none Estimated Blood Loss 50 Findings Consistent with Post-Op Diagnosis Fluids 850 cc LR Specimens Superficial cultures x2, superficial tissue x1 Drains Hemovac superficial Anesthesia Type General Complications none Disposition Disposition: Recovery Room Indications The patient is an 78-year-old male with significant past medical history for anxiety, depression, CAD, HLD with recent right total hip replacement performed on February 19, [address] Tee. Uneventful postoperative. With the exception of 2 days prior to today's examination, patient reports increased pain and swelling over lateral right hip. Admits to intermittent drainage as well. Seen in the outpatient setting by Dr. patrick and subsequently sent to [facility] emergency department for further inpatient treatment due to the patient's surgeon being on vacation. The patient currently denies fevers and chills . Denies trauma. The patient received IV vancomycin in the emergency department Acute surgical site infection of the right hip, superficial versus deep. No systemic symptoms at this time. Patient did receive IV antibiotics in the emergency department, will continue IV antibiotics at this time. Medical hospitalist consulted for preoperative clearance. I have indicated the patient for superficial versus deep irrigation debridement of the right hip, possible head and liner exchange. The risks benefits and complications the procedure were expanded the patient in detail including the alternatives which include however not limited to infections, blood clots, acute blood loss, injury to nerves, bone, vessels, soft tissue, chronic pain, arthrofibrosis, hip dislocation, leg length discrepancy, recurrent infection, need for additional surgery, loss of limb and loss of life. Patient wished to proceed with surgical intervention at this time and informed consent was obtained. Description of Procedure Following induction of adequate general anesthesia, the patient was transferred to the OR table and placed in lateral decubitus position with left hip down. The right hip was prepped and draped in the typical sterile fashion and a poste rolateral/Escobar-Langenbeck incision was made inline with the previous incision. Subcutaneous tissue was sharply dissected. Electrocautery was utilized for hemostasis. Immediately I was met with a moderate seroma cloudy serosanguineous fluid with fibrous tissue in the superficial tissues of distal one third incision. Culture swabs x2 were taken. The fluid collection was evacuated and superficial tissues were debrided with curette, Pearson elevator and rongeur. Tissue samples were sent x1. Once satisfied with debridement the wound was irrigated thoroughly with 3 L of sterile saline with bacitracin. The deep fascial layer was inspected carefully and probed and found to be intact without any defects or sinus communication. A superficial Hemovac drain was placed in the subcutaneous tissues. O PDS was utilized to close down the deep space. 3-0 PDS was used to close subcutaneous tissues. Skin was closed utilizing christian. Sterile dressings were applied which included Dori incisional VAC. The patient tolerated the procedure well and was transported to PACU in stable condition. I attest to the content of the Intraoperative Record and any orders documented therein. Any exceptions are noted below.
--- NOTE | 2019-04-03 17:21 | Anesthesiology Progress Note ---
Date of Service April 03, 2019 Anesthesia Post Procedure Vital Signs Vital Signs: Temp Pulse Pulse Resp BP Pulse Ox 04/03/19 17:15 74 16 156/72 H 100 04/03/19 17:05 75 16 162/73 H 100 04/03/19 16:56 36.6 C 83 16 124/84 99 04/03/19 14:45 36.7 C 78 20 157/80 H 95 04/03/19 07:13 36.6 C 82 19 151/81 H 94 04/02/19 22:56 37.1 C 82 16 149/78 H 94 Pain Intensity Right Hip: Pain Intensity: 8 Transfer of Care Handoff Completed per policy Notes Mental Status: alert / awake / arousable and participated in evaluation Patient Amnestic to Procedure: Yes Nausea / Vomiting: adequately controlled Pain: adequately controlled Airway Patency, RR, SpO2: stable & adequate BP & HR: stable & adequate Hydration State: stable & adequate Anesthetic Complications: no major complications apparent and Pt Satisfied with anesthetic care
[2019-04-03] MEDS ORDERED: MAGNESIUM HYDROXIDE SUSP 30 ML UDC PO PRN (17:55)
[2019-04-03] MEDS ORDERED: BISACODYL 10 MG SUPP PR PRN (17:55)
[2019-04-03] MEDS ORDERED: NALOXONE HCL 0.4 MG/1 ML VIAL/CARP IV PRN (17:55)
[2019-04-03] MEDS ORDERED: METOCLOPRAMIDE HCL INJ 5 MG/ML 2 ML VIAL IV PRN (17:55)
--- NOTE | 2019-04-03 18:12 | Orthopedic Progress Note ---
Date of Service April 03, 2019 Assessment & Plan (1) Surgical site infection: s/p right hip superficial I+D, excision of scar -Vanco -DVT ppx: SCDs, TEDs, ASA BID -WBAT RLE -PT/OT -f/u cultures -ID consult -monitor HMV drain -am labs -DC planning Subjective Post Operative Progress Note Patient seen in PACU, comfortable, denies complaints, pain well controlled, no acute issues. Review of Systems Review of Systems: All systems reviewed & are unremarkable except as noted in HPI & below Constitutional: as per Subjective / HPI Physical Exam Physical Exam: RLE NVSI +EHL/FHL/TA/GS SILT grossly, +2 DP pulse, compartments soft NT, dressing cdi. Incisional vac in place Constitutional: WD/WN, vitals as above Results & Data Vital Signs (Past 12 Hours) Vital Signs Temp Pulse Pulse Resp BP Pulse Ox 04/03/19 17:44 36.6 C 04/03/19 17:35 73 19 152/66 H 99 04/03/19 17:25 80 16 107/59 L 97 04/03/19 17:15 74 16 156/72 H 100 04/03/19 17:05 75 16 162/73 H 100 04/03/19 16:56 36.6 C 83 16 124/84 99 04/03/19 14:45 36.7 C 78 20 157/80 H 95 04/03/19 07:13 36.6 C 82 19 151/81 H 94
[2019-04-03] MEDS: risperiDONE 0.5 MG TABLET PO SCH (20:40)
[2019-04-03] MEDS: DOCUSATE SODIUM 100 MG CAP PO SCH (20:40)
[2019-04-03] MEDS: PRAMIPEXOLE DIHYDROCHLO 0.25 MG TAB PO SCH (20:40)
[2019-04-03] MEDS: ACETAMINOPHEN 500 MG TAB PO SCH (20:43)
[2019-04-03] MEDS: SENNA 8.6 MG TAB PO SCH (20:43)
[2019-04-03] MEDS ORDERED: VANCOMYCIN TROUGH ONE (21:30)
[2019-04-04] MEDS: ACETAMINOPHEN 500 MG TAB PO SCH ×3 (05:42→20:56)
--- NOTE | 2019-04-04 07:54 | Orthopedic Progress Note ---
Date of Service April 04, 2019 Assessment & Plan (1) Surgical site infection: s/p right hip superficial I+D, excision of scar POD#1 -Vanco -DVT ppx: SCDs, TEDs, ASA BID -WBAT RLE -PT/OT -f/u cultures -ID consult -monitor HMV drain -am labs pending -DC planning Subjective Post Operative Progress Note Patient seen ambulating in room, comfortable, denies complaints, pain well controlled, no acute issues. Review of Systems Review of Systems: All systems reviewed & are unremarkable except as noted in HPI & below Constitutional: as per Subjective / HPI Physical Exam Physical Exam: RLE NVSI +EHL/FHL/TA/GS SILT grossly, +2 DP pulse, compartments soft NT, dressing cdi. incisional vac and hmv intact Constitutional: WD/WN, vitals as above Results & Data Vital Signs (Past 12 Hours) Vital Signs Temp Pulse Pulse Resp BP Pulse Ox 04/04/19 07:35 36.5 C 76 18 156/76 H 98 04/04/19 03:48 36.7 C 72 16 162/73 H 97 04/03/19 22:59 36.6 C 69 16 135/71 94 04/03/19 20:46 36.7 C 77 18 122/67 93 04/03/19 20:16 78 17 128/72 95
[2019-04-04] MEDS: BRIMONIDINE TARTRATE-P 0.15% 5 ML BTL OP SCH ×3 (09:22→20:52)
[2019-04-04] MEDS: PROPRANOLOL HCL 10 MG TAB PO SCH ×2 (09:23→20:52)
[2019-04-04] MEDS: CITALOPRAM 20 MG TAB PO SCH (09:23)
[2019-04-04] MEDS: DOCUSATE SODIUM 100 MG CAP PO SCH ×2 (09:23→20:52)
[2019-04-04] MEDS: ASPIRIN 81 MG ECTAB PO SCH ×2 (09:23→20:53)
[2019-04-04] MEDS: MULTIVITAMIN TAB PO SCH (09:24)
[2019-04-04] MEDS: VANCOMYCIN HCL 1,500 MG in SODIUM CHLORIDE 0.9% 500 ML IV SCH ×2 (09:26→21:59)
[2019-04-04] MEDS ORDERED: VANCOMYCIN TROUGH ONE (09:30)
[2019-04-04 09:49] LABS: Hematocrit (blood only) 35.3 % (42-52); Hemoglobin 11.4 g/dL (14.0-18.0); Mean Corpuscular Hgb Conc 32.3 g/dL (32-36); Mean Platelet Volume 9.1 fL (7.4-10.4); Platelet Count 315 K/uL (130-400); RDW Coefficient of Variation 13.6 % (11.5-14.5); RDW Standard Deviation 45.6 fL (36.4-46.3); Red Blood Count 3.88 M/uL (4.7-6.1); White Blood Count 5.42 K/uL (4.8-10.8)
[2019-04-04 10:14] LABS: BUN Creatinine Ratio 14.4 (10-20); Calcium 8.9 mg/dl (8.5-10.1); Creatinine Clr Calc Pharmacy 66.4 ml/min; Est GFR (Non-African American) 69.9; Potassium 4.5 mmol/L (3.5-5.1)
--- NOTE | 2019-04-04 10:16 | Infectious Disease Consult ---
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 Await OR cultures. blood cultures remain negative. History of Present Illness Attending Physician: Win Monahan DO pt admitted due to chronic pain and more recent drainage from right hip. had hip replacement in January, states he did well immediately post op and was tolerating therapy without difficulty but a few weeks ago (unable to provide timeline) he developed a fever and shaking chills while eating at a restaurant, unable to say if he noticed pain and drainage from hip at that time. States he saw his doctor after this episode and was given a "medicine" which helped. Unable to tell me the name of medicine or if it was an antibiotic or duration of treatment. 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 He denies any further episodes. He went to OR yesterday for I&D, tolerated well. OR cultures pending, blood cultures obtained in Er, negative to date. He was placed emperically on vanco, remains on this, tolerating well. wbc 8.4 on admission, no esr done. on my exam he is oob to chair, denies pain, no f/c, afebrile since admission, no abd pain, no n/v/d, no cp, sob, cough. Allergies Allergy/AdvReac Type Severity Reaction Status Date / Time atorvastatin [From Lipitor] Allergy Nausea Unverified 04/02/19 11:52 niacin Allergy Rash Unverified 04/02/19 11:52 [From Niaspan Extended-Release] Home Medications Home Medications Medication Instructions Recorded Confirmed Type acetaminophen [Tylenol Extra 500 mg PO Q6H PRN 04/02/19 04/02/19 History Strength] aspirin [Aspirin Low Dose] 81 mg PO DAILY 04/02/19 04/02/19 History brimonidine [Alphagan P] 1 drp OPB TID 04/02/19 04/02/19 History cholecalciferol (vitamin D3) 2,000 unit PO DAILY 04/02/19 04/02/19 History [Vitamin D3] citalopram 20 mg PO DAILY 04/02/19 04/02/19 History cyanocobalamin (vitamin B-12) 1,000 mcg PO DAILY 04/02/19 04/02/19 History [Vitamin B-12] ibuprofen 600 mg PO BID 04/02/19 04/02/19 History multivitamin 1 tab PO DAILY 04/02/19 04/02/19 History pramipexole 0.25 mg PO HS 04/02/19 04/02/19 History propranolol 10 mg PO BID 04/02/19 04/02/19 History risperidone 0.25 mg PO HS 04/02/19 04/02/19 History Patient History Medical History Anxiety Carotid arterial disease Depression Essential tremor Guillain Reid syndrome at age 14; has resolved; no residual deficits after 1 year High cholesterol JOSH (obstructive sleep apnea) has CPAP, does not use RLS (restless legs syndrome) [place] teeth extracted Surgical History History of right hip replacement (~02/19/19) By Dr. Tee at [facility] H/O prostate biopsy had "growth" removed S/P cholecystectomy Status post rotator cuff repair L x 2 R x 1 Family History Other Family history non-contributory Social History Preferred Language: Malay Communication Ability: Effective Scale Mechanic Required: No Beliefs That Will Affect Care: Christian Christian Beliefs: Confucianism marital status: Current Living Situation: Spouse Other Information That Helps Us Care for You: No Feels Safe at Home: Yes Safety Concerns: Feels Safe At This Time Smoking Status: Former smoker Do You Dip or Chew Tobacco: No Smoking End Date: quit in his late 40's Second Hand Exposure: No Hx Alcohol Use: No Hx Substance Use: No Review of Systems Review of Systems: All systems reviewed & are unremarkable except as noted in HPI & below Physical Exam Constitutional: WD/WN, vitals as above Eyes: PERRL, conjunctivae normal, anicteric sclerae ENMT: external ear and nose normal, oropharynx normal Neck: normal visual inspection Respiratory: normal respiratory effort, lungs clear to auscultation Cardiovascular: RRR, no murmur, no edema Gastrointestinal (Abdomen): normal bowel sounds, soft, nontender, no hepatosplenomegaly Musculoskeletal: no cyanosis or clubbing, extremities motor strength 5/5 Skin: no rashes, warm and dry Psychiatric: A+Ox3, euthymic affect Results & Data Vital Signs (Past 12 Hours) Vital Signs Temp Pulse Pulse Resp BP Pulse Ox 04/04/19 07:35 36.5 C 76 18 156/76 H 98 04/04/19 03:48 36.7 C 72 16 162/73 H 97 04/03/19 22:59 36.6 C 69 16 135/71 94 Laboratory Results Microbiology 04/03/19 Unknown Hip,Right Gram Stain - Final 04/03/19 Unknown Hip,Right Gram Stain - Final 04/03/19 Unknown Hip,Right Gram Stain - Final 04/02/19 11:23 Blood Aerobic Blood Culture - Preliminary No growth in Aerobic bottle after 24 hours. 04/02/19 11:23 Blood Anaerobic Blood Culture - Preliminary No growth in Anaerobic bottle after 24 hours. 04/02/19 11:30 Blood Aerobic Blood Culture - Preliminary No growth in Aerobic bottle after 24 hours. 04/02/19 11:30 Blood Anaerobic Blood Culture - Preliminary No growth in Anaerobic bottle after 24 hours.
[2019-04-04] MEDS: OXYCODONE HCL IR 5 MG TAB (IMMEDIATE RELEASE) PO PRN ×2 (10:44→20:56)
--- NOTE | 2019-04-04 12:49 | Anesthesiology Progress Note ---
Date of Service April 04, 2019 Anesthesia Post Procedure Vital Signs Vital Signs: Temp Pulse Pulse Resp BP BP Pulse Ox 04/04/19 12:38 36.4 C L 66 17 110/60 95 04/04/19 07:35 36.5 C 76 18 156/76 H 98 04/04/19 03:48 36.7 C 72 16 162/73 H 97 04/03/19 22:59 36.6 C 69 16 135/71 94 04/03/19 20:46 36.7 C 77 18 122/67 93 04/03/19 20:16 78 17 128/72 95 04/03/19 19:00 36.6 C 81 17 147/76 H 97 04/03/19 18:32 36.5 C 75 19 150/72 H 98 04/03/19 17:55 36.5 C 73 19 148/73 H 92 04/03/19 17:44 36.6 C 04/03/19 17:35 73 19 152/66 H 99 04/03/19 17:25 80 16 107/59 L 97 04/03/19 17:15 74 16 156/72 H 100 04/03/19 17:05 75 16 162/73 H 100 04/03/19 16:56 36.6 C 83 16 124/84 99 04/03/19 14:45 36.7 C 78 20 157/80 H 95 Notes Mental Status: alert / awake / arousable and participated in evaluation Nausea / Vomiting: adequately controlled Pain: adequately controlled Airway Patency, RR, SpO2: stable & adequate BP & HR: stable & adequate Hydration State: stable & adequate
--- NOTE | 2019-04-04 13:19 | Hospitalist Progress Note ---
Date of Service April 04, 2019 Assessment & Plan (1) Postoperative wound infection of right hip: - S/P R NEIL on 02/19 - does report he was instructed to use hydrogen peroxide on incision site - maybe some skin compromise contributing? - reporting fever/chills/general ill feelings/drainage/erythema at site prior to presentation - Started on Vancomycin therapy - likely a gram + organism would be the culprit - not immunocompromised/diabetic... - clinically appears well but pending operative cultures may need to broaden to cover gram negs - Largely pain is controlled - ID consulted - appreciate input with antibiotics/duration - Orthopedics primary service - S/P superficial I&D - appreciate surgical management Patient is stable from a chronic medical standpoint. Recommend to continue home medications as previously prescribed. Hospitalist service will sign off at this time however do not hesitate to contact us with questions or a change in medical status Present on Admission?: Yes (2) Carotid stenosis: - Reports routine monitoring for this - reports intolerance to Lipitor and was placed on a different medication (doesn't know which one) but states he had excessive muscle weakness so likely this was a different statin? - Takes ASA 81 mg daily - last dose was AM on 04/02 -- ASA 81 mg BID being used as DVT prophylaxis Present on Admission?: Yes (3) Depression with anxiety: - Does endorse intermittent panic attacks - largely due to enclosed spaces - otherwise STABLE - Citalopram 20 mg daily and Risperidone 0.25 mg HS; will place low dose Ativan PRN if he would develop issues with anxiety (4) Restless leg syndrome: - Pramipexole 0.25 mg HS (5) Essential tremor: - STABLE - reports normally only a problem with fine motor skills like handwriting - Propranolol 10 mg BID Subjective Reports feeling well today. Some burning sensation at incision site but otherwise doing well. No fever/chills. Tolerating diet without issue. Verbalizes no other issues Review of Systems Constitutional: no fever and no chills Respiratory: no cough and no dyspnea Cardiovascular: no chest pain, no palpitations, no lightheadedness and no edema Gastrointestinal: no abdominal pain, no nausea, no vomiting, no constipation and no diarrhea/loose stools Genitourinary: no dysuria Musculoskeletal: + joint pain (R hip - more burning sensation) Neurologic: no tingling and no numbness Physical Exam Constitutional: WD/WN, vitals as above Eyes: + anicteric sclerae ENMT: Ears: no hearing impairment Neck: trachea midline Respiratory: normal respiratory effort, lungs clear to auscultation Cardiovascular: RRR, no murmur, no edema Gastrointestinal (Abdomen): Inspection/Auscultation: normal bowel sounds Percussion/Palpation: abdomen soft; abdomen nontender Musculoskeletal: Head/Neck/Chest: normocephalic, head atraumatic and neck supple dressing applied to R hip with drain present Neurologic: moves all extremities Psychiatric: A+Ox3, euthymic affect Results & Data Vital Signs (Past 12 Hours) Vital Signs Temp Pulse Pulse Resp BP BP Pulse Ox 04/04/19 12:38 36.4 C L 66 17 110/60 95 04/04/19 07:35 36.5 C 76 18 156/76 H 98 04/04/19 03:48 36.7 C 72 16 162/73 H 97
--- NOTE | 2019-04-04 14:17 | Pharmacy Report ---
Pharmacy Abx Dose Short Note - Date of Service April 04, 2019 - Assessment & Plan Assessment * Mr Rios is an 78 year old M receiving Vancomycin for treatment of R hip surgical site infection * Hip wound cultures are growing gram positive cocci, blood cultures are negative thus far * Vanc trough level was obtained this mornin.7 mcg/mL. This is therapeutic and should be access service representative of steady-state. Plan Vancomycin * Continue dose of Vanc 1500 mg IV every 12 hours * Goal trough level for SSTI: 15 to 20 mcg/mL * No further levels have been ordered at this time. If patient continues on vanc, will check another level in a couple of days (or sooner if renal function changes). Pharmacy will continue to follow and will adjust dose/frequency as necessary. Thank you.
[2019-04-04] MEDS: risperiDONE 0.5 MG TABLET PO SCH (20:52)
[2019-04-04] MEDS: PRAMIPEXOLE DIHYDROCHLO 0.25 MG TAB PO SCH (20:53)
[2019-04-04] MEDS: SENNA 8.6 MG TAB PO SCH (20:59)
[2019-04-05] MEDS: ACETAMINOPHEN 500 MG TAB PO SCH ×3 (05:44→21:37)
[2019-04-05] MEDS: ASPIRIN 81 MG ECTAB PO SCH ×2 (07:33→21:35)
[2019-04-05] MEDS: PROPRANOLOL HCL 10 MG TAB PO SCH ×2 (07:33→21:34)
[2019-04-05] MEDS: MULTIVITAMIN TAB PO SCH (07:33)
[2019-04-05] MEDS: BRIMONIDINE TARTRATE-P 0.15% 5 ML BTL OP SCH ×3 (07:33→21:34)
--- NOTE | 2019-04-05 07:33 | Orthopedic Progress Note ---
Date of Service April 05, 2019 Assessment & Plan (1) Surgical site infection: s/p right hip superficial I+D, excision of scar POD#2 -Vanco -DVT ppx: SCDs, TEDs, ASA BID -WBAT RLE -PT/OT -f/u cultures + gram positive cocci -ID consult recs appreciated, awaiting final recs -monitor HMV drain -am labs pending -DC planning s/p right hip superficial I+D, excision of scar POD#1 -Vanco -DVT ppx: SCDs, TEDs, ASA BID -WBAT RLE -PT/OT -f/u cultures -ID consult -monitor HMV drain -am labs pending -DC planning Subjective Post Operative Progress Note Patient seen layin in bed, comfortable, denies complaints, pain well controlled, no acute issues. Review of Systems Review of Systems: All systems reviewed & are unremarkable except as noted in HPI & below Constitutional: as per Subjective / HPI Physical Exam Physical Exam: RLE NVSI +EHL/FHL/TA/GS SILT grossly, +2 DP pulse, compartments soft NT, dressing cdi. Constitutional: WD/WN, vitals as above Results & Data Vital Signs (Past 12 Hours) Vital Signs Temp Pulse Resp BP BP Pulse Ox 04/05/19 07:12 36.5 C 74 19 146/73 H 96 04/04/19 22:46 36.6 C 72 16 147/78 H 98
[2019-04-05] MEDS: DOCUSATE SODIUM 100 MG CAP PO SCH ×2 (07:34→21:30)
[2019-04-05] MEDS: CITALOPRAM 20 MG TAB PO SCH (07:34)
[2019-04-05 08:26] LABS: Hematocrit (blood only) 31.4 % (42-52); Hemoglobin 10.3 g/dL (14.0-18.0); Mean Corpuscular Hgb Conc 32.8 g/dL (32-36); Mean Platelet Volume 8.9 fL (7.4-10.4); Platelet Count 314 K/uL (130-400); RDW Coefficient of Variation 13.5 % (11.5-14.5); RDW Standard Deviation 44.2 fL (36.4-46.3); Red Blood Count 3.49 M/uL (4.7-6.1)
[2019-04-05 09:01] LABS: BUN Creatinine Ratio 17.7 (10-20); Calcium 8.7 mg/dl (8.5-10.1); Creatinine Clr Calc Pharmacy 79.8 ml/min; Est GFR (African American) 95.8; Est GFR (Non-African American) 82.7; Potassium 4.2 mmol/L (3.5-5.1)
[2019-04-05] MEDS: VANCOMYCIN HCL 1,500 MG in SODIUM CHLORIDE 0.9% 500 ML IV SCH ×2 (10:13→21:37)
--- NOTE | 2019-04-05 10:59 | Infectious Disease Progress Nt ---
Date of Service April 05, 2019 Assessment & Plan (1) Post op infection: cotninue vanco for now, await final ID/sensitivity of gpc on OR cultures. blood cultures negative to date, afebrile. ID service to follow. Subjective pt doing well. states min pain in right hip. cultures growing gpc x 3. blood cultures remain negative, remains on vanco, tolerating well denies f/c. no cp, sob, murray, n/v/d/abd pain, eating well. wbc 5.4 Review of Systems Review of Systems: All systems reviewed & are unremarkable except as noted in HPI & below Physical Exam Constitutional: WD/WN, vitals as above Eyes: PERRL, conjunctivae normal, anicteric sclerae ENMT: external ear and nose normal, oropharynx normal Neck: normal visual inspection Respiratory: normal respiratory effort, lungs clear to auscultation Cardiovascular: RRR, no murmur, no edema Gastrointestinal (Abdomen): normal bowel sounds, soft, nontender, no hepatosp lenomegaly Musculoskeletal: no cyanosis or clubbing, extremities motor strength 5/5 Skin: no rashes, warm and dry Psychiatric: A+Ox3, euthymic affect Results & Data Vital Signs (Past 12 Hours) Vital Signs Temp Pulse Resp BP Pulse Ox 04/05/19 07:12 36.5 C 74 19 146/73 H 96 Laboratory Results Microbiology 04/03/19 Unknown Hip,Right Gram Stain - Final 04/03/19 Unknown Hip,Right Aerobic and Anaerobic Culture - Preliminary Gram positive cocci 04/03/19 Unknown Hip,Right Gram Stain - Final 04/03/19 Unknown Hip,Right Aerobic and Anaerobic Culture - Preliminary Gram positive cocci 04/03/19 Unknown Hip,Right Gram Stain - Final 04/03/19 Unknown Hip,Right Aerobic and Anaerobic Culture - Preliminary Gram positive cocci 04/02/19 11:23 Blood Aerobic Blood Culture - Preliminary No growth in Aerobic bottle after 48 hours. 04/02/19 11:23 Blood Anaerobic Blood Culture - Preliminary No growth in Anaerobic bottle after 48 hours. 04/02/19 11:30 Blood Aerobic Blood Culture - Preliminary No growth in Aerobic bottle after 48 hours. 04/02/19 11:30 Blood Anaerobic Blood Culture - Preliminary No growth in Anaerobic bottle after 48 hours.
[2019-04-05] MEDS: SENNA 8.6 MG TAB PO SCH (21:30)
[2019-04-05] MEDS: PRAMIPEXOLE DIHYDROCHLO 0.25 MG TAB PO SCH (21:35)
[2019-04-05] MEDS: risperiDONE 0.5 MG TABLET PO SCH (21:36)
[2019-04-06] MEDS: ACETAMINOPHEN 500 MG TAB PO SCH ×3 (05:46→21:49)
[2019-04-06 07:53] LABS: Hematocrit (blood only) 30.2 % (42-52); Mean Corpuscular Hgb Conc 33.1 g/dL (32-36); Mean Corpuscular Volume 89.3 fL (80-100); Mean Platelet Volume 8.8 fL (7.4-10.4); Platelet Count 348 K/uL (130-400); RDW Coefficient of Variation 13.4 % (11.5-14.5); RDW Standard Deviation 43.7 fL (36.4-46.3); Red Blood Count 3.38 M/uL (4.7-6.1); White Blood Count 5.99 K/uL (4.8-10.8)
[2019-04-06 08:28] LABS: BUN Creatinine Ratio 18.5 (10-20); C Reactive Protein 4.89 mg/dl (0-0.29); Calcium 8.9 mg/dl (8.5-10.1); Creatinine Clr Calc Pharmacy 82.7 ml/min; Est GFR (African American) 97.3; Est GFR (Non-African American) 83.9; Potassium 4.2 mmol/L (3.5-5.1)
[2019-04-06] MEDS: CITALOPRAM 20 MG TAB PO SCH (08:42)
[2019-04-06] MEDS: MULTIVITAMIN TAB PO SCH (08:42)
[2019-04-06] MEDS: DOCUSATE SODIUM 100 MG CAP PO SCH ×2 (08:42→20:18)
[2019-04-06] MEDS: BRIMONIDINE TARTRATE-P 0.15% 5 ML BTL OP SCH ×3 (08:43→20:21)
[2019-04-06] MEDS: PROPRANOLOL HCL 10 MG TAB PO SCH ×2 (08:43→20:17)
[2019-04-06] MEDS: ASPIRIN 81 MG ECTAB PO SCH ×2 (08:43→20:20)
[2019-04-06] MEDS: VANCOMYCIN HCL 1,500 MG in SODIUM CHLORIDE 0.9% 500 ML IV SCH ×2 (10:23→21:50)
--- NOTE | 2019-04-06 13:47 | Orthopedic Progress Note ---
Date of Service April 06, 2019 Assessment & Plan (1) Surgical site infection: s/p right hip superficial I+D, excision of scar POD#3 -Vanco -DVT ppx: SCDs, TEDs, ASA BID -WBAT RLE -PT/OT -f/u cultures strep species and coag negative staph. Sensitivities are pending. -ID consult recs appreciated, awaiting final recs -monitor HMV drain -am labs hemoglobin at 10 this am. -DC planning Subjective pt doing well. states min pain in right hip. Preliminary cultures growing strep species and coag negative staph, sensitivities are pending. Blood cultures remain negative, remains on vanco, tolerating well denies f/c. no cp, sob, murray, n/v/d/abd pain, eating well. wbc 5.4 Review of Systems Review of Systems: All systems reviewed & are unremarkable except as noted in HPI & below Physical Exam Physical Exam: Patient seen bedside chair. Hemovac is draining, Prevena c/d/i. No calf tenderness. Sensation and n/v status intact. Results & Data Vital Signs (Past 12 Hours) Vital Signs Temp Pulse Resp BP Pulse Ox 04/06/19 06:52 36.7 C 73 20 158/78 H 95
[2019-04-06] MEDS: PRAMIPEXOLE DIHYDROCHLO 0.25 MG TAB PO SCH (20:18)
[2019-04-06] MEDS: SENNA 8.6 MG TAB PO SCH (20:18)
[2019-04-06] MEDS: risperiDONE 0.5 MG TABLET PO SCH (20:19)
[2019-04-06] MEDS: OXYCODONE HCL IR 5 MG TAB (IMMEDIATE RELEASE) PO PRN (20:25)
[2019-04-07 05:23] LABS: Hematocrit (blood only) 31.7 % (42-52); Hemoglobin 10.3 g/dL (14.0-18.0); Mean Corpuscular Hgb Conc 32.5 g/dL (32-36); Mean Corpuscular Volume 90.3 fL (80-100); Mean Platelet Volume 8.6 fL (7.4-10.4); Platelet Count 402 K/uL (130-400); RDW Coefficient of Variation 13.5 % (11.5-14.5); RDW Standard Deviation 44.5 fL (36.4-46.3); Red Blood Count 3.51 M/uL (4.7-6.1)
[2019-04-07] MEDS: ACETAMINOPHEN 500 MG TAB PO SCH (05:43)
[2019-04-07 06:03] LABS: BUN Creatinine Ratio 15.5 (10-20); Calcium 8.6 mg/dl (8.5-10.1); Creatinine Clr Calc Pharmacy 72.1 ml/min; Est GFR (African American) 89.5; Est GFR (Non-African American) 77.3
[2019-04-07] MEDS: OXYCODONE HCL IR 5 MG TAB (IMMEDIATE RELEASE) PO PRN (07:34)
[2019-04-07] MEDS: ASPIRIN 81 MG ECTAB PO SCH (08:26)
[2019-04-07] MEDS: BRIMONIDINE TARTRATE-P 0.15% 5 ML BTL OP SCH (08:26)
[2019-04-07] MEDS: PROPRANOLOL HCL 10 MG TAB PO SCH (08:27)
[2019-04-07] MEDS: DOCUSATE SODIUM 100 MG CAP PO SCH (08:27)
[2019-04-07] MEDS: MULTIVITAMIN TAB PO SCH (08:27)
[2019-04-07] MEDS: CITALOPRAM 20 MG TAB PO SCH (08:27)
--- NOTE | 2019-04-07 08:31 | Orthopedic Progress Note ---
Date of Service April 07, 2019 Assessment & Plan (1) Surgical site infection: s/p right hip superficial I+D, excision of scar POD#4 -Vanco -DVT ppx: SCDs, TEDs, ASA BID -WBAT RLE -PT/OT -cx's growing zimmerman senstive enterococcus, discuss with ID for final ABX plan -ID consult recs appreciated, awaiting final recs -d/c drain --DC planning Subjective pt doing well. states min pain in right hip. Preliminary cultures growing strep species and coag negative staph, sensitivities are pending. Blood cultures remain negative, remains on vanco, tolerating well denies f/c. no cp, sob, murray, n/v/d/abd pain, eating well. wbc 5.4 Results & Data Vital Signs (Past 12 Hours) Vital Signs Temp Pulse Pulse Resp BP Pulse Ox 04/07/19 08:11 36.3 C L 74 17 154/84 H 97 04/06/19 23:28 36.5 C 71 18 133/81 97 04/06/19 21:53 152/78 H
[2019-04-07] MEDS ORDERED: AMOXICILLIN/CLAVULANATE 875 MG TAB PO SCH ×3 (09:30→17:00)
--- NOTE | 2019-04-16 19:48 | Discharge Summary ---
Date of Service April 16, 2019 Admission HPI Per Admitting Provider The patient is an 78-year-old male with significant past medical history for anxiety, depression, CAD, HLD with recent right total hip replacement performed on February 19, [address] Tee. Uneventful postoperative. With the exception of 2 days prior to today's examination, patient reports increased pain and swelling over lateral right hip. Admits to intermittent drainage as well. Seen in the outpatient setting by Dr. patrick and subsequently sent to [facility] emergency department for further inpatient treatment due to the patient's surgeon being on vacation. The patient currently denies fevers and chills . Denies trauma. The patient received IV vancomycin in the emergency department. Principal Diagnosis I+D Right hip surgical site, superficial surgical site infection Discharge Exam RLE NVSI +EHL/FHL/TA/GS SILT grossly, +2 DP pulse, compartments soft NT, dressing cdi. Constitutional WD/WN, vitals as above Discharge Data Allergies Allergy/AdvReac Type Severity Reaction Status Date / Time atorvastatin [From Lipitor] Allergy Nausea Unverified 04/02/19 11:52 niacin Allergy Rash Unverified 04/02/19 11:52 [From Niaspan Extended-Release] Consultations 04/02/19 17:09 Consult Internal Medicine Routine 04/03/19 17:55 Consult Case Management - Discharge Planning Routine Consult Infectious Diseases Routine Procedures Performed Operation Date: 04/03/19 07:00 Actual Procedures p Superficial Incision and Drainage Right Hip, Incision of Scar(Right) - Win Monahan DO Hospital Course (1) Surgical site infection: The patient is a 78 -year-old male who presents with acute onset of right lateral hip pain x 2 days. Recent history of Right total hip replacement on 02/19/19. The [place] surgeon [place] at the time of presentation and unable to care for the patient in the acute setting. The patient was admitted by myself for inpatient treatment. Consult placed to the medical hospitalist service for pre-operative clearance. The patient was started on vancomycin in the ED and continued throughout his hospital stay. I indicated the patient for a I+D right hip surgical site superficial vs deep possible head and liner exchange. The risks, benefits and complications of the procedure include but not limited to infection, bleeding, damage to bone, nerves, vessels, surrounding soft tissue, may develop blood clots, loss of function, leg length discrepancy, dislocation, failure of the components, loosening of the components, the need for additional surgery and . The patient wished to proceed with surgery at this time and informed consent was obtained. Hospital Course: On 04/03/19 the patient was taken to the operating room, adequate anesthesia administered and underwent a superfical I+D of the right hip surgical site. The patient tolerated the procedure well and was taken to the PACU in stable condition. Post-operatively the patient was started on a DVT ppx medication and given appropriate IV antibiotics. Consults were placed to ID, physical therapy, occupational therapy and case management. On POD#1, the patient did well overnight and their pain was well controlled. Labs were drawn and the Hgb was 11.4. The patient progressed well with PT. Dressings were were c/d/i. HMV output monitored. On POD#2, the patient continued to progress with PT and cultures followed. All three cultures positive for Enterococcus faecalis and one culture positive for coag neg staph. Labs drawn, hgb 10.3. HMV drain maintained. On POD#3, the patient continued to progress with PT, ID recs appreciated, vancomycin continued, sensitives followed. All three cultures positive for Enterococcus faecalis and one culture positive for coag neg staph. Labs drawn, hgb 10.0. HMV drain maintained. ESR >90, CRP 4.89. On POD#3, the patient continued to progress with PT, ID recs appreciated, vancomycin continued, sensitives final. All three cultures positive for Enterococcus faecalis and one culture positive for coag neg staph. Labs drawn, hgb 10.3. HMV drain DC'd, final recs by ID received and the patient discharged on oral augmentin. The patients hospital stay was relatively uneventful and they were deemed stable by the orthopedic team and consultants to be discharged on home with on 04/07/19. Discharge Instructions: Upon discharge the patient may weight bear as tolerates through their operative extremity. They were instructed to keep the incision clean and dry at all times. The patient may shower but should not submerge the incision, avoid bathing, pools and hot tubes. The patient was given a script for pain medication and should take as instructed. The patient was given a script for DVT ppx ASA BID and should take as directed. The patient was discharged on PO augmentin 875/125mg 1 tab BID. The patient was instructed to not drive or travel for long distances until cleared to do so. If the patient develops any symptoms of fevers, chills, nausea, vomiting, increased redness, swelling, pain or drainage from the surgical site, they should notify the office and/or proceed to the nearest emergency room. The patient should follow up with Dr. Tee in 10-14 days after surgery for their routine post-operative follow-up appointment and should call the office to confirm the date and time. s/p right hip superficial I+D, excision of scar POD#4 -Vanco -DVT ppx: SCDs, TEDs, ASA BID -WBAT RLE -PT/OT -cx's growing zimmerman senstive enterococcus, discuss with ID for final ABX plan -ID consult recs appreciated, awaiting final recs -d/c drain --DC planning Total Time Total Time Spent Total Time Spent (In Minutes): 30 minutes Total Time Includes: Examination of the Patient, Discharge Planning, Medication Reconciliation and Communication With Other Providers Discharge Plan Discharge Items Patient Disposition: Home - Home Health Services Reason For Visit: RIGHT HIP SURGICAL SITE INFECTION Discharge Diagnosis: Right hip superficial infection. Discharge Goals: Decrease discomfort, Improve function and Increase independence Activity: Per 'Additional Instructions' section Non-emergency contact: Surgeon Call non-emergency contact if: your pain is concerning for you, your temperature is above 101, your wound has increased redness and your wound has increased drainage Follow-up/Referrals: Fidelia Nicolas M.D. [Primary Care Provider] - Diet: Regular Addtl Provider Instructions: You have a wound vac over your incision, remove and discard all parts one week post op and replace with daily dressing changes until follow up appt. Weight bear as tolerated with walker. Continue Aspirin to prevent blood clots Ice as needed. Follow up with Dr. Thompson 10-12 days post op at [facility], call [phone] for appt. Prescriptions: New amoxicillin-pot clavulanate 875-125 mg Tablet 1 tab PO BIDM 28 Days Qty: 56 RF: 0 acetaminophen [Tylenol Extra Strength] 500 mg Tablet 1,000 mg PO Q8 30 Days Qty: 180 RF: 0 aspirin [Ecotrin Low Strength] 81 mg Tablet,Delayed Release (Dr/Ec) 81 mg PO BID 30 Days Qty: 60 RF: 0 oxycodone 5 mg Tablet 5 mg PO Q4H PRN (Reason: pain) Qty: 30 RF: 0 Continued multivitamin Tablet 1 tab PO DAILY RF: 0 cyanocobalamin (vitamin B-12) [Vitamin B-12] 1,000 mcg Tablet 1,000 mcg PO DAILY RF: 0 risperidone 0.25 mg Tablet 0.25 mg PO HS RF: 0 propranolol 10 mg Tablet 10 mg PO BID RF: 0 citalopram 20 mg Tablet 20 mg PO DAILY RF: 0 pramipexole 0.25 mg Tablet 0.25 mg PO HS RF: 0 Alphagan P 0.1 % Drops 1 drp OPB TID RF: 0 cholecalciferol (vitamin D3) [Vitamin D3] 2,000 unit Capsule 2,000 unit PO DAILY RF: 0 Discontinued aspirin [Aspirin Low Dose] 81 mg Tablet,Delayed Release (Dr/Ec) 81 mg PO DAILY RF: 0 acetaminophen [Tylenol Extra Strength] 500 mg Tablet 500 mg PO Q6H PRN (Reason: Pain) RF: 0 ibuprofen 600 mg tablet 600 mg PO BID RF: 0 Stand-Alone Forms: [facility], [facility] Discharge Orders: Discharge Order (Routine); Ordered 04/07/19 Ordered By: Martin Gaines Admission Data Admit Date/Time: 04/02/19 15:16 Attending Provider: Win Monahan Admit Provider: Win Monahan Primary Care Provider: Fidelia Nicolas Other Providers: Amor Goldman ; Esteban Box Service: Surgical Services Other Interventions: Discharge Summary Assessment (RN) Last Done: 04/07/19 11:56 DC Date/Time DO NOT enter until pt leaves facility: 04/07/19 13:52
== END 2019-04-07 13:52 | disposition home health service (06) | DRG 502 ==
LOC: EDBD → ED 10:24 → 3W 15:16
PROC: M.IDHIP (2019-04-03 07:00)